=== PATIENT | male | born 1985 | race Caucasian/White ===

== ENCOUNTER 2016-09-07 20:46 | Emergency (ER) | payer SELFPAY | END 2016-09-07 23:45 | disposition left against medical advice (07) | LOC: ER1 20:46 | DX: Z53.21 Procedure and treatment not carried out due to patient leaving prior to being seen by health care provider (principal) | CPT/HCPCS: 93005 ==

== ENCOUNTER 2020-07-22 03:45 | Emergency (ER) | payer BC, OTHER ==
[~2020-07-22 03:45] MED LIST: AUGMENTIN 875-1 EACH PO; CLEOCIN HCL300 MG PO; CYCLOBENZAPRINE10 MG PO; FLOMAX0.4 MG PO; HYDROCODON-ACE1 EAC2 PO; IBU800 MG PO; IBUPROFEN600 MG PO; IBUPROFEN800 MG PO; PERCOCET 5/325 T1 EA PO; PROTONIX40 MG PO; TORADOL 10 MG T10 MG PO; Viscous lidocaine 2% TOP; ZOFRAN4 MG PO
[2020-07-22 04:52] LABS: HEMOGLOBIN 15.9 gm/dl (14.0-17.5); RED BLOOD COUNT 5.23 M/UL (4.20-5.50); WHITE BLOOD COUNT 9.7 K/UL (4.5-11.0)
[2020-07-22 04:54] LABS: BUN/CREATININE RATIO 16 (0-10)
== END 2020-07-22 05:30 | disposition home or self-care (01) ==
LOC: ER1 03:45
PROVIDERS: Family Medicine
DX: M54.10 Radiculopathy, site unspecified (principal)
CPT/HCPCS: 36415; 71046; 80053; 82550; 82553; 83874; 84484; 85025; 93005; 99284; J1650

== ENCOUNTER 2020-07-29 20:51 | Emergency (ER) | payer BC, OTHER ==
[2020-07-29] MEDS ORDERED: CYCLOBENZAPRINE10 MG PO (21:21)
== END 2020-07-29 21:43 | disposition home or self-care (01) ==
LOC: ER1 20:51
DX: S39.012A Strain of muscle, fascia and tendon of lower back, initial encounter (principal); Z88.2 Allergy status to sulfonamides; Z88.5 Allergy status to narcotic agent; Z87.442 Personal history of urinary calculi; X58.XXXA Exposure to other specified factors, initial encounter
CPT/HCPCS: 99283

== ENCOUNTER 2020-10-26 07:05 | Emergency (ER) | payer OTHER ==
[2020-10-26] MEDS ORDERED: CYCLOBENZAPRINE10 MG PO (09:03)
[2020-10-26] MEDS ORDERED: MOBIC15 MG PO (09:03)
== END 2020-10-26 09:16 | disposition home or self-care (01) ==
LOC: ER1 07:05
DX: M62.838 Other muscle spasm (principal)
CPT/HCPCS: 72050; 96372; 99283; J1885; J2360

== ENCOUNTER 2020-12-19 16:55 | Emergency (ER) | payer SELFPAY ==
[~2020-12-19 16:55] MED LIST changes: +MOBIC15 MG PO
[2020-12-19 17:47] LABS: HEMOGLOBIN 16.6 gm/dl (14.0-17.5); RED BLOOD COUNT 5.34 M/UL (4.20-5.50); WHITE BLOOD COUNT 8.1 K/UL (4.5-11.0)
[2020-12-19 18:11] LABS: BUN/CREATININE RATIO 12 (0-10)
== END 2020-12-19 21:50 | disposition home or self-care (01) ==
LOC: ER1 16:55
DX: R10.31 Right lower quadrant pain (principal)
CPT/HCPCS: 80053; 81001; 83690; 85025; 96374; 96375; 99284; J1170; J2405; J7030; Q9967

== ENCOUNTER 2021-01-12 20:21 | Emergency (ER) | payer SELFPAY ==
[2021-01-12] MEDS ORDERED: IBUPROFEN600 MG PO (22:27)
== END 2021-01-12 22:32 | disposition home or self-care (01) ==
LOC: ER1 20:21
DX: S00.01XA Abrasion of scalp, initial encounter (principal); W13.0XXA Fall from, out of or through balcony, initial encounter
CPT/HCPCS: 99283

== ENCOUNTER 2021-01-30 19:43 | Emergency (ER) | payer SELFPAY ==
[2021-01-30 22:14] LABS: HEMOGLOBIN 16.1 gm/dl (14.0-17.5); RED BLOOD COUNT 5.45 M/UL (4.20-5.50); WHITE BLOOD COUNT 9.6 K/UL (4.5-11.0)
[2021-01-30 22:32] LABS: BUN/CREATININE RATIO 18 (0-10)
== END 2021-01-31 01:24 | disposition home or self-care (01) ==
LOC: ER1 19:43
PROVIDERS: Physician Assistant Medical
DX: R10.31 Right lower quadrant pain (principal); Z87.442 Personal history of urinary calculi
CPT/HCPCS: 80053; 81001; 85025; 99284

== ENCOUNTER → 2021-02-07 | Outpatient (CLI) | payer OTHER | LOC: EROP 01:47 | DX: Z20.822 Contact with and (suspected) exposure to COVID-19 (principal) | CPT/HCPCS: U0002 ==

== ENCOUNTER → 2021-02-08 | Outpatient (CLI) | payer OTHER | LOC: EROP 19:37 | DX: Z20.822 Contact with and (suspected) exposure to COVID-19 (principal) | CPT/HCPCS: U0002 ==

== ENCOUNTER 2021-02-27 02:43 | Emergency (ER) | payer SELFPAY ==
[2021-02-27 03:25] LABS: HEMOGLOBIN 16.6 gm/dl (14.0-17.5); RED BLOOD COUNT 5.4 M/UL (4.20-5.50); WHITE BLOOD COUNT 7.4 K/UL (4.5-11.0)
[2021-02-27 03:46] LABS: BUN/CREATININE RATIO 14 (0-10)
[2021-02-27] MEDS ORDERED: LODINE CAP 300300 MG PO (05:46)
== END 2021-02-27 05:55 | disposition home or self-care (01) ==
LOC: ER1 02:43
PROVIDERS: Physician Assistant
DX: I88.0 Nonspecific mesenteric lymphadenitis (principal)
CPT/HCPCS: 80053; 81001; 83690; 85025; 87086; 96374; 96375; 99284

== ENCOUNTER 2021-04-09 22:02 | Emergency (ER) | payer SELFPAY ==
[~2021-04-09 22:02] MED LIST changes: +LODINE CAP 300300 MG PO
[2021-04-09 23:28] LABS: HEMOGLOBIN 17.1 gm/dl (14.0-17.5); RED BLOOD COUNT 5.52 M/UL (4.20-5.50); WHITE BLOOD COUNT 7.4 K/UL (4.5-11.0)
[2021-04-09 23:56] LABS: BUN/CREATININE RATIO 14 (0-10)
[2021-04-10] MEDS ORDERED: BENTYL 20MG TAB20 MG PO (01:36)
[2021-04-10] MEDS ORDERED: ZOFRAN ODT 4 MG4 MG PO (01:36)
== END 2021-04-10 02:00 | disposition home or self-care (01) ==
LOC: ER1 22:02
PROVIDERS: Physician Assistant
DX: R10.813 Right lower quadrant abdominal tenderness (principal)
CPT/HCPCS: 80053; 81001; 83690; 85025; 96374; 96375; 99284; J1885; J2405; J7030; Q9967

== ENCOUNTER 2021-04-27 01:41 | Emergency (ER) | payer SELFPAY ==
[~2021-04-27 01:41] MED LIST changes: +BENTYL 20MG TAB20 MG PO; +ZOFRAN ODT 4 MG4 MG PO
[2021-04-27] MEDS ORDERED: PSEUDOEPHEDRINE60 MG PO (02:12)
[2021-04-27] MEDS ORDERED: CORTISPORIN OTI10 M1 EARLF (02:12)
[2021-04-27] MEDS ORDERED: FLONASE 0.05% N16 GM (02:12)
[2021-04-27] MEDS ORDERED: NAPROXEN500 MG PO (02:12)
== END 2021-04-27 02:25 | disposition home or self-care (01) ==
LOC: ER1 01:41
DX: H92.02 Otalgia, left ear (principal)
CPT/HCPCS: 99282

== ENCOUNTER → 2021-05-22 | Outpatient (CLI) | payer OTHER ==
[~2021-05-22] MED LIST changes: +CORTISPORIN OTI10 M1 EARLF; +FLONASE 0.05% N16 GM; +NAPROXEN500 MG PO; +PSEUDOEPHEDRINE60 MG PO
== END ==
LOC: LAB 23:47
DX: U07.1 COVID-19 (principal)
CPT/HCPCS: U0002

== ENCOUNTER 2021-09-08 05:26 | Emergency (ER) | payer OTHER ==
[2021-09-08] MEDS ORDERED: CYCLOBENZAPRINE10 MG PO (07:54)
[2021-09-08] MEDS ORDERED: NAPROSYN500 MG PO (07:54)
== END 2021-09-08 07:56 | disposition home or self-care (01) ==
LOC: ER1 05:26
DX: S76.912A Strain of unspecified muscles, fascia and tendons at thigh level, left thigh, initial encounter (principal); X58.XXXA Exposure to other specified factors, initial encounter
CPT/HCPCS: 73502; 99283

== ENCOUNTER 2021-10-05 01:15 | Emergency (ER) | payer OTHER ==
[~2021-10-05 01:15] MED LIST changes: +NAPROSYN500 MG PO
[2021-10-05 02:27] LABS: HEMOGLOBIN 16.4 gm/dl (14.0-17.5); RED BLOOD COUNT 5.25 M/UL (4.20-5.50); WHITE BLOOD COUNT 9.2 K/UL (4.5-11.0)
[2021-10-05 02:38] LABS: BUN/CREATININE RATIO 12 (0-10)
[2021-10-05] MEDS ORDERED: ZOFRAN ODT 4 MG4 MG PO (03:12)
== END 2021-10-05 03:25 | disposition home or self-care (01) ==
LOC: ER1 01:15
PROVIDERS: Family Medicine
DX: R42 Dizziness and giddiness (principal); R11.2 Nausea with vomiting, unspecified; R51.9 Headache, unspecified; Z20.822 Contact with and (suspected) exposure to COVID-19
CPT/HCPCS: 0240U; 80053; 81001; 82550; 82553; 83690; 83735; 84484; 85025; 93005; 99284

== ENCOUNTER 2021-12-07 16:42 | Emergency (ER) | payer OTHER ==
[2021-12-07 17:31] LABS: HEMOGLOBIN 16.4 gm/dl (14.0-17.5); RED BLOOD COUNT 5.22 M/UL (4.20-5.50); WHITE BLOOD COUNT 10.2 K/UL (4.5-11.0)
[2021-12-07 17:56] LABS: BUN/CREATININE RATIO 17 (0-10)
[2021-12-07] MEDS ORDERED: NORFLEX 100 MG100 MG PO (21:14)
[2021-12-07] MEDS ORDERED: NAPROXEN500 MG PO (21:14)
== END 2021-12-07 21:25 | disposition home or self-care (01) ==
LOC: ER1 16:42
PROVIDERS: Physician Assistant
DX: R07.9 Chest pain, unspecified (principal)
CPT/HCPCS: 71045; 80053; 82550; 82553; 84484; 85025; 85379; 93005; 96372; 99285; J1885

== ENCOUNTER 2021-12-13 09:08 | Emergency (ER) | payer OTHER ==
[~2021-12-13 09:08] MED LIST changes: +NORFLEX 100 MG100 MG PO
[2021-12-13 09:54] LABS: HEMOGLOBIN 16.4 gm/dl (14.0-17.5); RED BLOOD COUNT 5.27 M/UL (4.20-5.50); WHITE BLOOD COUNT 7.1 K/UL (4.5-11.0)
[2021-12-13 10:17] LABS: BUN/CREATININE RATIO 14 (0-10)
== END 2021-12-13 14:12 | disposition home or self-care (01) ==
LOC: ER1 09:08
PROVIDERS: Physician Assistant
DX: R07.9 Chest pain, unspecified (principal); R42 Dizziness and giddiness; I45.10 Unspecified right bundle-branch block; Z87.442 Personal history of urinary calculi
CPT/HCPCS: 71045; 80053; 82550; 82553; 84484; 85025; 93005; 99285

== ENCOUNTER 2022-02-19 22:07 | Emergency (ER) | payer SELFPAY | END 2022-02-19 23:35 | disposition home or self-care (01) | LOC: ER1 22:07 | DX: M25.562 Pain in left knee (principal); R40.2410 Glasgow coma scale score 13-15, unspecified time | CPT/HCPCS: 73564; 99283 ==